=== PATIENT | male | born 1945 | race Caucasian/White ===

== ENCOUNTER 2017-04-26 08:02 | Observation (INO) | payer MEDICARE, OTHER ==
[~2017-04-26] VITALS: Ht 195.6 cm; Wt 95.8 kg
--- NOTE | 2017-04-26 08:30 | REP ---
CT Head without contrast HISTORY: Infarction COMPARISON: None Areas of decreased attenuation are present in the periventricular white matter. This represents small-vessel ischemic disease. There is no intraparenchymal hemorrhage, acute infarct, mass or midline shift. The ventricular system and cortical sulci are dilated consistent with minimal volume loss. There is no extra cerebral collection. There is no fracture. The visualized sinuses are clear. IMPRESSION: 1. Small vessel ischemic disease. 2. Minimal volume loss. Signed by Mart Garcia MD 04/26/2017 08:20 A
--- NOTE | 2017-04-26 08:43 | REP ---
Chest one-view HISTORY: Infarction Comparison: None The lungs are clear. The heart is normal in size. The pulmonary vasculature is normal in appearance. Impression: No acute disease. Signed by Mart Garcia MD 04/26/2017 08:35 A
[2017-04-26 08:50] LABS: BASO % 0.6 % (0.0-1.0); EOS # 0.1 K/mm3 (0.0-0.50); LARGE UNSTAINED CELL # 0.1 K/mm3 (0.0-0.4); LARGE UNSTAINED CELL % 1.8 % (0.0-4.0); LYMPH # 0.5 K/mm3 (1.5-4.5); LYMPH % 13.6 % (24.0-44.0); MEAN CORPUSCULAR HEMOGLOBIN 31.2 pg (27.0-33.0); MEAN CORPUSCULAR HGB CONC 34.6 g/dl (32.0-36.5); MEAN CORPUSCULAR VOLUME 90.2 fl (80.0-96.0); MONO # 0.2 K/mm3 (0.0-0.8); MONO % 5.1 % (0.0-5.0); NEUTROPHILS # 2.6 K/mm3 (1.8-7.7); NEUTROPHILS % 75.9 % (36.0-66.0); RED CELL DISTRIBUTION WIDTH 12.1 % (11.5-14.5); WHITE BLOOD COUNT 3.5 K/mm3 (4.0-10.0)
[2017-04-26 08:53] LABS: INR 0.94
[2017-04-26 09:14] LABS: ALBUMIN 3.5 GM/DL (3.2-5.2); ALBUMIN/GLOBULIN RATIO 1.35 (1.00-1.93); ALKALINE PHOSPHATASE 51 U/L (45-117); ALT/SGPT 26 U/L (12-78); ANION GAP 8 MEQ/L (8-16); AST/SGOT 19 U/L (15-37); BILIRUBIN,DIRECT 0.2 MG/DL (0.0-0.2); BILIRUBIN,TOTAL 0.6 MG/DL (0.2-1.0); BLOOD UREA NITROGEN 23 MG/DL (7-18); CALCIUM LEVEL 8.4 MG/DL (8.8-10.2); CARBON DIOXIDE LEVEL 25 MEQ/L (21-32); CHLORIDE LEVEL 103 MEQ/L (98-107); CREATININE FOR GFR 1.37 MG/DL (0.70-1.30); GLOMERULAR FILTRATION RATE 54.8 (>49); GLUCOSE, FASTING 141 MG/DL (80-110); POTASSIUM SERUM 4.1 MEQ/L (3.5-5.1); SODIUM LEVEL 136 MEQ/L (136-145); TOTAL PROTEIN 6.1 GM/DL (6.4-8.2)
[2017-04-26 09:26] LABS: PLATELET COUNT, AUTOMATED 96 k/mm3 (150-450)
[2017-04-26] MEDS ORDERED: NS 1,000 ML IV ONE (09:30)
[2017-04-26] MEDS ORDERED: TUMS500C PO (09:35)
[2017-04-26] MEDS ORDERED: TRAZ1TAB14 PO (09:35)
[2017-04-26] MEDS ORDERED: VALS1TAB48 PO (09:35)
[2017-04-26] MEDS ORDERED: ADVI200T PO (09:35)
[2017-04-26] MEDS ORDERED: RAMI10CA PO (09:35)
[2017-04-26] MEDS ORDERED: ASPIRIN 325 MG TAB PO ONE (09:45)
[2017-04-26 10:06] LABS: METHADONE URINE NEGATIVE (NEGATIVE)
[2017-04-26] MEDS ORDERED: ACETAMINOPHEN TAB 650MG DOSE (2X325MG) PO PRN (10:30)
[2017-04-26] MEDS ORDERED: ONDANSETRON 4MG/2ML VIAL (J2405) IV PRN (10:30)
--- NOTE | 2017-04-26 10:43 | HPEPDOC ---
General Date of Admission 04/26/17 Other Providers PCP: Roark Pete Chief Complaint The patient is a 71-year-old male admitted with a reason for visit of Lethargy. Source: Patient Exam Limitations: No limitations Timing/Duration: 1-3 hours History of Present Illness 71-year-old male with past Medical history of hypertension, insomnia, dyspepsia , and chronic neck pain presented to the ER with a chief complaint of dizziness , confusion, and dysarthria. The patient states that his symptoms started this morning around 7:30 AM. He notes that he first noticed the symptoms of generalized weakness and dysarthria after he took a shower this morning. He denies a similar occurrence in the past. He also denied any visual blurring, facial droop, numbness/tingling, or any other acute focal neurological deficits. The patient denies any known history of coronary artery disease or any other neurological disease. During this time, the patient has denied any acute complaints of fevers, chills, chest pain, shortness of breath, palpitations, abdominal pain, or any nausea/vomiting/diarrhea. In the ER, the patient's symptoms had largely resolved. CT scan of the head was noted to be negative for acute findings. Dr. Rodriguez of Neurology was consulted via Telemedicine. An NIHSS score was noted to be 0. It was recommended that the patient be admitted and have an MRI/MRA of the brain and MRA of the carotids done. The hospitalist service was subsequently consulted for admission for the diagnosis of TIA. Home Medications Scheduled Ibuprofen (Advil) 200 Mg Tab, 200 MG PO DAILY, (Reported) Ramipril (Ramipril) 10 Mg Cap, 10 MG PO DAILY, (Reported) Valsartan (Valsartan) 320 Mg Tab, 320 MG PO DAILY, (Reported) Scheduled PRN Calcium Carbonate (Tums) 500 Mg Chw, 500 MG PO PRN PRN for HEARTBURN/INDIGESTION , (Reported) Trazodone HCl (Trazodone HCl) 150 Mg Tab, 150 MG PO QHS PRN for SLEEP, (Reported ) Allergies Coded Allergies: Penicillins (Verified Allergy, Intermediate, 04/26/17) Past Medical History Medical History As noted in HPI. Surgical History Appendectomy at the age of 6. Family History Significant Family History: Other (father had multiple MIs and at the age of 37. No family history of CVAs) Social History * Smoker: former Smoker (smoked 1 pack per day from age [age], quit thereafter) Alcohol: occationally Drugs: basilio Has 5 children, lives with his and is independent in his activities of daily living. Currently works at an [employer]. Review of Symptoms Other systems 10 point review of systems negative unless otherwise specified in HPI. Physical Examination General Exam: Positive: Alert, Cooperative, No Acute Distress Eye Exam: Positive: PERRLA, Conjunctiva & lids normal, EOMI, Negative: Sclera icteric ENT Exam: Positive: Atraumatic, Mucous membr. moist/pink Neck Exam: Negative: JVD Chest Exam: Positive: Clear to auscultation, Normal air movement Heart Exam: Positive: Rate Normal, Normal S1, Normal S2 Telemetry: Positive: Sinus Abdomen Exam: Positive: Soft, Negative: Tenderness Extremity Exam: Negative: Tenderness, Swelling Neuro Exam: Positive: Strength at 5/5 X4 ext, Sensation Intact, Cranial Nerves 3-12 NL, Reflexes 2+ Psych Exam: Positive: Oriented x 3 Vital Signs Vital Signs Date Time Temp Pulse Resp B/P (MAP) Pulse Ox O2 Delivery O2 Flow Rate FiO2 04/26/17 09:47 59 99 04/26/17 09:15 141/65 (90) 04/26/17 08:44 Room Air 94 04/26/17 08:07 97.8 18 Laboratory Data Labs 24H Laboratory Tests 2 04/26/17 08:31: Bedside Glucose (Misc Panel) 143H 04/26/17 08:39: White Blood Count 3.5L, Red Blood Count 4.30, Hemoglobin 13.4L, Hematocrit 38.8L , Mean Corpuscular Volume 90.2, Mean Corpuscular Hemoglobin 31.2, Mean Corpuscular Hemoglobin Concent 34.6, Red Cell Distribution Width 12.1, Platelet Count 96L, Neutrophils (%) (Auto) 75.9H, Lymphocytes (%) (Auto) 13.6L, Monocytes (%) (Auto) 5.1H, Eosinophils (%) (Auto) 3.0, Basophils (%) (Auto) 0.6 , Neutrophils # (Auto) 2.6, Lymphocytes # (Auto) 0.5L, Monocytes # (Auto) 0.2, Eosinophils # (Auto) 0.1, Basophils # (Auto) 0.0, Large Unclassified Cells % 1.8 , Large Unclassified Cells # 0.1 04/26/17 08:40: Prothrombin Time 12.7, Prothromb Time International Ratio 0.94, Activated Partial Thromboplast Time 25.7L, Anion Gap 8, Glomerular Filtration Rate 54.8, Calcium Level 8.4L, Aspartate Amino Transf (AST/SGOT) 19, Alanine Aminotransferase (ALT/SGPT) 26, Alkaline Phosphatase 51, Total Bilirubin 0.6, Direct Bilirubin 0.2, Total Creatine Kinase 68, Creatine Kinase MB 1.5, Creatine Kinase MB Relative Index 2.20, Troponin I < 0.02, Total Protein 6.1L, Albumin 3.5, Albumin/Globulin Ratio 1.35, Thyroid Stimulating Hormone (TSH) 1.060, Salicylates Level < 1.7L, Acetaminophen Level < 2.0L, Ethyl Alcohol Level < 0.003 04/26/17 09:36: Urine Amphetamines Screen NEGATIVE, Urine Benzodiazepines Screen NEGATIVE, Urine Opiates Screen NEGATIVE, Urine Methadone Screen NEGATIVE, Urine Barbiturates Screen NEGATIVE, Urine Phencyclidine Screen NEGATIVE, Urine Cocaine Metabolite Screen NEGATIVE, Urine Cannabinoids Screen NEGATIVE CBC/BMP Laboratory Tests 04/26/17 08:39 Red Blood Count 4.30, Mean Corpuscular Volume 90.2, Mean Corpuscular Hemoglobin 31.2, Mean Corpuscular Hemoglobin Concent 34.6, Red Cell Distribution Width 12.1 , Neutrophils (%) (Auto) 75.9 H, Lymphocytes (%) (Auto) 13.6 L, Monocytes (%) ( Auto) 5.1 H, Eosinophils (%) (Auto) 3.0, Basophils (%) (Auto) 0.6, Neutrophils # (Auto) 2.6, Lymphocytes # (Auto) 0.5 L, Monocytes # (Auto) 0.2, Eosinophils # (Auto) 0.1, Basophils # (Auto) 0.0 04/26/17 08:40 Plan / VTE VTE Prophylaxis Ordered?: Yes Plan Plan Transient Ischemic Attack Will admit to the PCU CT scan of the head with no acute findings Telemetry-neurology consulted in the ER, input appreciated NIHSS Score: 0 on exam MRI/MRA brain, MRA carotids ordered 2-D echocardiogram ordered EKG noted to be in normal sinus rhythm-we will continue to monitor on telemetry We will start the patient on full dose of aspirin for the next 7 days, and then transition to 81 mg aspirin daily as per neurology recommendations Lipid panel, hemoglobin A1c ordered for risk stratification Patient has been started on atorvastatin We will continue to monitor the patient on telemetry with serial neurological checks Acute kidney injury Baseline serum creatinine unknown, serum creatinine noted to be 1.37 here The patient does state that he has a history of kidney disease, but was most recently told that his numbers have improved back to baseline We will place an order to obtain records from his PCP at the [facility] Hold nephrotoxins Gentle IV fluid hydration ordered Renal ultrasound We will follow-up BMP in the a.m. Hypertension, stable We will hold the patient's current BP meds secondary to NATY Insomnia We will hold the patient's trazodone at this time given his neurological complaints GERD/dyspepsia Continue TUMS prn DVT Prophylaxis Lovenox OWEN PEGUERO MD Apr 26, 2017 10:43
[2017-04-26] MEDS ORDERED: CALCIUM CARBONATE 500 MG CHEW U/D PO PRN (10:45)
[2017-04-26 10:53] LABS: CHOLESTEROL LEVEL 171 MG/DL (<200); TRIGLYCERIDES LEVEL 198 MG/DL (<150)
[2017-04-26] MEDS: hydrALAZINE INJ 20 MG/ML VIAL IV SCH ×2 (11:00→18:02)
--- NOTE | 2017-04-26 11:22 | ECGEPIP ---
Stationary ECG Study [facility] - ED Test Date: 2017-04-26 Pat Name: RADHA MOHAN Department: Room: - Gender: M Beauty Consultant: jessika : [id number] Requested By: Juan Neves Order Number: [id number] Reading MD: Juan Neves Measurements Intervals Cyrus Rate: 95 P: 63 TN: 199 QRS: 1 QRSD: 103 T: -1 QT: 354 QTc: 447 Interpretive Statements SINUS RHYTHM NONSPECIFIC STT WAVE CHANGES NO OLD ECG FOR COMPARISON Electronically Signed On 04-26-2017 11:22:29 EDT by Juan Neves
--- NOTE | 2017-04-26 12:22 | REP ---
RENAL ULTRASOUND: HISTORY: Kidney disease. The kidneys are normal in echogenicity. The right kidney measures 6.1 cm in transverse x 6.6 cm in AP x 10.4 cm in cephalocaudal dimensions. The left kidney measures 5.8 cm in transverse x 5.9 cm in AP x 11 cm in cephalocaudal dimensions. A 1.2 cm cyst is present in the right kidney. A 1.5 cm cyst is present in the left kidney. There is no hydronephrosis or mass. There are no filling defects in the urinary bladder. IMPRESSION: Small bilateral renal cysts. Signed by Mart Garcia MD 04/26/2017 12:27 P
[2017-04-26 13:30] VITALS: BP 132/70
[2017-04-26] MEDS: NS 1,000 ML IV SCH (13:30)
[2017-04-26] MEDS: ATORVASTATIN 20 MG TAB PO SCH (13:48)
[2017-04-26] MEDS: ENOXAPARIN 40 MG/0.4 ML SYRINGE (J1650) SC SCH (13:49)
--- NOTE | 2017-04-26 15:30 | REP ---
MRA BRAIN WITHOUT CONTRAST: HISTORY: TIAs. 3D TOF MR angiography was performed at the level of the [place]. There is no aneurysm or arteriovenous malformation. Mild atherosclerotic disease involves the cavernous and supraclinoid internal carotid arteries. The A1 segment of the right anterior cerebral artery is hypoplastic. Major intracranial vessels are patent. The right vertebral artery is dominant. IMPRESSION: 1. There is no aneurysm or arteriovenous malformation. 2. Atherosclerotic disease as described above. Signed by Mart Garcia MD 04/26/2017 03:37 P
[2017-04-26 16:00] VITALS: BP 125/88
[2017-04-26 18:01] VITALS: BP 133/72
[2017-04-26 20:00] VITALS: BP 146/79
[2017-04-26 23:44] VITALS: BP 151/84
[2017-04-27 03:00] VITALS: BP 146/76
[2017-04-27] MEDS: hydrALAZINE INJ 20 MG/ML VIAL IV SCH (03:00)
[2017-04-27] MEDS: NS 1,000 ML IV SCH (04:10)
[2017-04-27 04:12] VITALS: BP 146/76
[2017-04-27 05:58] LABS: MEAN CORPUSCULAR HEMOGLOBIN 31.1 pg (27.0-33.0); MEAN CORPUSCULAR HGB CONC 33.8 g/dl (32.0-36.5); RED CELL DISTRIBUTION WIDTH 12.1 % (11.5-14.5); WHITE BLOOD COUNT 4.7 K/mm3 (4.0-10.0)
[2017-04-27 06:06] LABS: CALCIUM LEVEL 7.9 MG/DL (8.8-10.2); CREATININE FOR GFR 1.31 MG/DL (0.70-1.30); GLOMERULAR FILTRATION RATE 57.8 (>49); MAGNESIUM LEVEL 1.8 MG/DL (1.8-2.4); POTASSIUM SERUM 4.2 MEQ/L (3.5-5.1)
--- NOTE | 2017-04-27 06:26 | REP ---
MRI BRAIN WITHOUT CONTRAST: HISTORY: TIA. COMPARISON: CT 04/26/2017. Areas of increased signal intensity on T2-weighted images are present in the periventricular and subcortical white matter. This represents small vessel ischemic disease. There is no intraparenchymal hemorrhage, infarct, mass or midline shift. The ventricular system and cortical sulci are dilated consistent with minimal volume loss. There is no extracerebral collection. Mucosal thickening is present in the ethmoid, maxillary and sphenoid sinuses. IMPRESSION: 1. Small vessel ischemic disease. 2. Minimal volume loss. Signed by Mart Garcia MD 04/27/2017 08:25 A
--- NOTE | 2017-04-27 06:27 | REP ---
MRA CAROTIDS WITHOUT CONTRAST: HISTORY: TIA. Unenhanced 2D [id number] MRI angiography was performed at the level of the carotid bifurcations. The examination is limited secondary to motion. There is mild stenosis of 20% of the right internal carotid artery at its origin. The origin of the right external carotid artery is normal. There is no definite stenosis at the origins of the left external and internal carotid arteries. The vertebral arteries are patent. The right vertebral artery is dominant. IMPRESSION: Mild stenosis of 20% of the right internal carotid artery at its origin. Signed by Mart Garcia MD 04/27/2017 08:25 A
[2017-04-27] MEDS: ATORVASTATIN 20 MG TAB PO SCH (07:39)
[2017-04-27] MEDS: ENOXAPARIN 40 MG/0.4 ML SYRINGE (J1650) SC SCH (07:39)
[2017-04-27] MEDS ORDERED: ASPIRIN 325 MG TAB PO SCH (09:00)
[2017-04-27] MEDS ORDERED: AMLO10TA PO (11:03)
[2017-04-27] MEDS ORDERED: ASPI325T PO (11:03)
[2017-04-27] MEDS ORDERED: ATOR40TA75 PO (11:03)
--- NOTE | 2017-04-27 15:38 | DS.PDOC ---
Discharge Summary General Date of Admission Apr 26, 2017 at 10:25 Date of Discharge 04/27/17 Discharge Summary PROCEDURES PERFORMED DURING STAY: None. ADMITTING DIAGNOSES: 1. . Transient ischemic attack DISCHARGE DIAGNOSES: 1. . Transient ischemic attack COMPLICATIONS/CHIEF COMPLAINT: TIA. HISTORY OF PRESENT ILLNESS: . 71-year-old male with past Medical history of hypertension, insomnia, dyspepsia , and chronic neck pain presented to the ER with a chief complaint of dizziness , confusion, and dysarthria. The patient states that his symptoms started this morning around 7:30 AM. He notes that he first noticed the symptoms of generalized weakness and dysarthria after he took a shower this morning. He denies a similar occurrence in the past. He also denied any visual blurring, facial droop, numbness/tingling, or any other acute focal neurological deficits. The patient denies any known history of coronary artery disease or any other neurological disease. During this time, the patient has denied any acute complaints of fevers, chills, chest pain, shortness of breath, palpitations, abdominal pain, or any nausea/vomiting/diarrhea. In the ER, the patient's symptoms had largely resolved. CT scan of the head was noted to be negative for acute findings. Dr. Rodriguez of Neurology was consulted via Telemedicine. An NIHSS score was noted to be 0. It was recommended that the patient be admitted and have an MRI/MRA of the brain and MRA of the carotids done. The hospitalist service was subsequently consulted for admission for the diagnosis of TIA. During hospitalization, the patient was monitored in the telemetry unit. He had no events of atrial fibrillation noted. An MRI/MRA of the brain as well as an MRA of the carotid arteries revealed no acute findings. The patient's symptoms completely resided and the patient stated that he is back to his baseline. He denied any further neurological complaints. Risk factors for CVA and heart disease were discussed with the patient as well as the plan to continue the patient on aspirin 325 mg by mouth for an additional 5 days, and then 81 mg of aspirin thereafter indefinitely. I also discussed adding atorvastatin 40 mg to the patient's regimen. The patient states that he will get a 2-D echocardiogram done as an outpatient with his primary care doctor as he does not want to stay in the hospital any longer at this time. In addition, I did discuss the patient' s renal function with him. He states that he does have some baseline renal insufficiency, but he is not sure of the numbers. We have yet to receive records from his PCP regarding his baseline serum creatinine at this time. However, the patient states that he will follow up with his primary care physician regarding this. I have decided to discontinue the patient's ibuprofen as well as his ramipril and losartan until he has a follow up with his PCP. The patient has been started on Norvasc instead, adverse side effects were discussed. The patient has been advised to follow-up with his primary care physician for follow-up lab work. DISCHARGE MEDICATIONS: Please see below. ALLERGIES: Please see below. PHYSICAL EXAMINATION ON DISCHARGE: VITAL SIGNS: Please see below. General Exam: Positive: Alert, Cooperative, No Acute Distress Eye Exam: Positive: PERRLA, Conjunctiva & lids normal, EOMI, Negative: Sclera icteric ENT Exam: Positive: Atraumatic, Mucous membr. moist/pink Neck Exam: Negative: JVD Chest Exam: Positive: Clear to auscultation, Normal air movement Heart Exam: Positive: Rate Normal, Normal S1, Normal S2 Telemetry: Positive: Sinus Abdomen Exam: Positive: Soft, Negative: Tenderness Extremity Exam: Negative: Tenderness, Swelling Neuro Exam: Positive: Strength at 5/5 X4 ext, Sensation Intact, Cranial Nerves 3-12 NL, Reflexes 2+ Psych Exam: Positive: Oriented x 3 LABORATORY DATA: Please see below. IMAGING: MRI BRAIN WITHOUT CONTRAST: HISTORY: TIA. COMPARISON: CT 04/26/2017. Areas of increased signal intensity on T2-weighted images are present in the periventricular and subcortical white matter. This represents small vessel ischemic disease. There is no intraparenchymal hemorrhage, infarct, mass or midline shift. The ventricular system and cortical sulci are dilated consistent with minimal volume loss. There is no extracerebral collection. Mucosal thickening is present in the ethmoid, maxillary and sphenoid sinuses. IMPRESSION: 1. Small vessel ischemic disease. 2. Minimal volume loss. MRA BRAIN WITHOUT CONTRAST: HISTORY: TIAs. 3D TOF MR angiography was performed at the level of the [place]. There is no aneurysm or arteriovenous malformation. Mild atherosclerotic disease involves the cavernous and supraclinoid internal carotid arteries. The A1 segment of the right anterior cerebral artery is hypoplastic. Major intracranial vessels are patent. The right vertebral artery is dominant. IMPRESSION: 1. There is no aneurysm or arteriovenous malformation. 2. Atherosclerotic disease as described above. CT Head without contrast HISTORY: Infarction COMPARISON: None Areas of decreased attenuation are present in the periventricular white matter. This represents small-vessel ischemic disease. There is no intraparenchymal hemorrhage, acute infarct, mass or midline shift. The ventricular system and cortical sulci are dilated consistent with minimal volume loss. There is no extra cerebral collection. There is no fracture. The visualized sinuses are clear. IMPRESSION: 1. Small vessel ischemic disease. 2. Minimal volume loss. PROGNOSIS: Medically stable ACTIVITY: As tolerated. DIET: . Low-fat, low-cholesterol diet DISCHARGE PLAN: Home DISPOSITION: Home, Self-Care. DISCHARGE INSTRUCTIONS: 1. . Follow-up with primary care physician within one week 2. . Follow-up with primary care physician regarding BMP follow-up and BP med changes 3. . Return to the ER symptoms return or persist DISCHARGE CONDITION: Stable. TIME SPENT ON DISCHARGE: Greater than 30 minutes. Vital Signs/I&Os Vital Signs Date Time Temp Pulse Resp B/P (MAP) Pulse Ox O2 Delivery O2 Flow Rate FiO2 04/27/17 08:00 97.2 54 20 97 Room Air 04/27/17 04:12 146/76 (99) 04/26/17 08:44 94 I&O- Last 24 Hours up to 6 AM 04/27/17 06:00 Intake Total 1860 ml Output Total 2225 ml Balance -365 ml Laboratory Data Labs 24H Laboratory Tests 2 04/27/17 05:11: Anion Gap 4L, Glomerular Filtration Rate 57.8, Blood Urea Nitrogen 19H, Creatinine 1.31H, Sodium Level 141, Potassium Level 4.2, Chloride Level 109H, Carbon Dioxide Level 28, Calcium Level 7.9L, Magnesium Level 1.8 CBC/BMP Laboratory Tests 04/27/17 05:11 Red Blood Count 4.07 L, Mean Corpuscular Volume 92.0, Mean Corpuscular Hemoglobin 31.1, Mean Corpuscular Hemoglobin Concent 33.8, Red Cell Distribution Width 12.1, Calcium Level 7.9 L Discharge Medications Scheduled Amlodipine Besylate (Norvasc) 10 Mg Tab, 10 MG PO DAILY Aspirin (Aspirin) 325 Mg Tab, 325 MG PO DAILY Atorvastatin Calcium (Atorvastatin Calcium) 40 Mg Tab, 40 MG PO DAILY Scheduled PRN Calcium Carbonate (Tums) 500 Mg Chw, 500 MG PO PRN PRN for HEARTBURN/INDIGESTION , (Reported) Trazodone HCl (Trazodone HCl) 150 Mg Tab, 150 MG PO QHS PRN for SLEEP, (Reported ) Allergies Coded Allergies: Penicillins (Verified Allergy, Intermediate, 04/26/17) OWEN TURPIN MD Apr 27, 2017 15:38
== END 2017-04-27 11:44 | disposition home or self-care (01) ==
LOC: EDBD 08:02 → M ED 08:02 → M ED INP 10:25 → INTOOBSV 10:25 → M PCU 13:25
PROVIDERS: ADMIT Internal Medicine; ATTEND Internal Medicine
DX: G45.9 Transient cerebral ischemic attack, unspecified (principal); I10 Essential (primary) hypertension; G47.00 Insomnia, unspecified; K21.9 Gastro-esophageal reflux disease without esophagitis; M54.2 Cervicalgia; Z79.82 Long term (current) use of aspirin; Z79.899 Other long term (current) drug therapy; Z88.0 Allergy status to penicillin
CPT/HCPCS: 36415; 70450; 70544; 70547; 70551; 71010; 76775; 80048; 80061; 80076; 80307; 82550; 82553; 83036; 83735; 84443; 84484; 85025; 85027; 85610; 85730; 86850; 93005; 93041; 94760; 99285; G0378; G0480; J1650